=== PATIENT | female | born 1965 | race Caucasian/White ===

== ENCOUNTER 2017-07-21 15:30 | Outpatient (CLI) | payer OTHER | END 2017-07-21 15:31 | disposition home or self-care (01) | LOC: BICRAD 15:30 | PROVIDERS: ATTEND Internal Medicine | DX: Z02.71 Encounter for disability determination (principal); M47.896 Other spondylosis, lumbar region; Z95.1 Presence of aortocoronary bypass graft | CPT/HCPCS: 72100 ==

== ENCOUNTER 2017-11-25 22:08 | Emergency (ER) | payer OTHER, SELFPAY ==
--- NOTE | 2017-11-25 23:00 | RAD ---
CHEST ONE VIEW: 11/25/17 HISTORY: Pain. COMPARISON: None. FINDINGS: Slight elongation of the aorta. Normal cardiac silhouette. The lungs and pleural spaces are clear. No pneumothorax or osseous abnormalities. IMPRESSION: No acute cardiopulmonary process. POS: [facility]
[2017-11-25 23:02] LABS: #Lymphocytes 1.9 thou/uL (1.20-3.40); #Monocytes 0.5 thou/uL (0.11-0.59); %Eosinophils 0.3 % (0.0-10.0); %Lymphocytes 18.2 % (21.0-51.0); %Monocytes 4.5 % (0.0-10.0); Hemoglobin 12.6 g/dL (12.0-16.0); Mean Corpuscular HGB CONC 33.6 g/dL (32.0-36.0); Mean Corpuscular Hemoglobin 27.9 pg (27.0-31.0); Mean Platelet Volume 6.8 fL (7.4-10.4); Platelet Count 321 thou/uL (130-400); RBC Distribution Width 12.2 % (11.5-14.5); White Blood Cell (WBC) Count 10.3 thou/uL (4.8-10.8)
[2017-11-25 23:04] LABS: Bilirubin Negative (Negative); Blood, Urine Moderate (Negative); Clarity CLEAR (Clear); Glucose, Urine (Dipstick) Negative (Negative); Leukocyte Large (Negative); Nitrite Negative (Negative); Protein, Urine (Dipstick) Negative (Neg-Trace); Specific Gravity, Urine 1.005 (1.002-1.036); Urobilinogen 0.2 mg/dL (0.2-1.0)
[2017-11-25 23:06] LABS: Bacteria/HPF None Seen HPF (None Seen); Hyaline Casts/LPF 0-3 HYALINE CAST LPF (0-3 Hyaline); Pathc Cast-AUWi Flag 0.14 (0-2.49); Squamous Epithelial 0-3 HPF (0-3); WBC/HPF 21-50 HPF (0-3)
[2017-11-25 23:14] LABS: Cocaine Metabolite Screen Not Detected (NotDetected); Medtox Reader # READER 1; Methamphetamine Detected (NotDetected); Phencyclidine (PCP) Not Detected (NotDetected); THC/Cannabinoid Screen Not Detected (NotDetected)
[2017-11-25 23:15] LABS: Amphetamine Detected (NotDetected); Barbiturates Screen Not Detected (NotDetected); Benzodiazepine Screen Detected (NotDetected); Medtox Control Line Valid? VALID (VALID); Methadone Not Detected (NotDetected); Opiate Screen Not Detected (NotDetected); Oxycodone Screen Not Detected (NotDetected); Tricyclic Screen Detected (NotDetected)
[2017-11-25 23:24] LABS: Acetaminophen Less than 6.0 mcg/mL (10.0-30.0); Alcohol Less than 10 mg/dL (Less than 10); CK (CPK) 68 U/L (29-168); Salicylate Less than 8.0 mg/dL (15.0-30.0)
[2017-11-25] MEDS ORDERED: Ketorolac Tromethamine 30 MG/ML VIAL ONE (23:24)
[2017-11-25 23:25] LABS: ALT (SGPT) 11 U/L (8-55); AST (SGOT) 15 U/L (5-34); Albumin 4.5 g/dL (3.5-5.0); Alkaline Phosphatase 109 U/L (40-150); Anion Gap 14 mmol/L (10-20); BUN (Urea Nitrogen) 10 mg/dL (9.8-20.1); Bilirubin, Total 0.2 mg/dL (0.2-1.2); Calc. Creatinine Clearance 0 mL/min (70-130); Carbon Dioxide 27 mmol/L (22-29); Chloride 102 mmol/L (98-107); Estimated GFR-MDRD Greater than 90; Glucose 88 mg/dL (70-105); Potassium 3.7 mmol/L (3.5-5.1); Protein, Total 7.5 g/dL (6.0-8.3); Sodium 139 mmol/L (136-145)
[2017-11-25 23:29] LABS: Troponin I Less than 0.010 ng/mL (< 0.028)
[2017-11-25] MEDS ORDERED: cefTRIAXone\\ROCEPHIN 2 GM VIAL ONE (23:55)
[2017-11-25] MEDS ORDERED: Sodium Chloride 0.9% 100 ML ONE (23:56)
--- NOTE | 2017-12-13 16:24 | EKG ---
Test Reason : TACHY/DRUG USE Blood Pressure : / mmHG Vent. Rate : 113 BPM Atrial Rate : 113 BPM P-R Int : 158 ms QRS Dur : 074 ms QT Int : 330 ms P-R-T Axes : 050 011 023 degrees QTc Int : 452 ms Sinus tachycardia Otherwise normal ECG Confirmed by AYDIN ROBLES M.D. ([id number]), tape editor KEON FERGUSON ([id number]) on 12/13/2017 4:22:57 PM Referred By: Confirmed By:AYDIN ROBLES M.D.
--- NOTE | 2017-12-13 16:24 | EKG ---
Test Reason : CHEST PAIN Blood Pressure : / mmHG Vent. Rate : 102 BPM Atrial Rate : 102 BPM P-R Int : 172 ms QRS Dur : 076 ms QT Int : 354 ms P-R-T Axes : 049 017 032 degrees QTc Int : 461 ms Sinus tachycardia Otherwise normal ECG Confirmed by MARGARET Monahan, AYDIN ([id number]), editor farm [employer] KEON FERGUSON ([id number]) on 12/13/2017 4:22:59 PM Referred By: CHRISTIANE ROBLES Confirmed By:AYDIN ROBLES M.D.
== END 2017-11-26 00:25 | disposition home or self-care (01) ==
LOC: ERS 22:08
DX: N39.0 Urinary tract infection, site not specified (principal); F15.10 Other stimulant abuse, uncomplicated; F13.20 Sedative, hypnotic or anxiolytic dependence, uncomplicated; F19.10 Other psychoactive substance abuse, uncomplicated; I10 Essential (primary) hypertension; F41.9 Anxiety disorder, unspecified; F17.210 Nicotine dependence, cigarettes, uncomplicated
CPT/HCPCS: 71045; 80053; 80306; 80307; 81003; 81015; 82553; 84484; 85025; 87086; 93005; 96361; 96365; 96375; J0696; J1885; J7050

== ENCOUNTER 2019-07-03 20:39 | Emergency (ER) | payer SELFPAY ==
[~2019-07-03 20:39] MED LIST: Iopamidol-370 76% 500 ML 1 ML ONE
[2019-07-03 21:30] LABS: #Basophils 0.1 thou/uL (0.0-0.2); #Eosinphils 0.1 thou/uL (0.0-0.7); #Lymphocytes 2.1 thou/uL (1.20-3.40); #Monocytes 1.6 thou/uL (0.11-0.59); %Basophils 0.3 % (0.0-1.0); %Eosinophils 0.5 % (0.0-10.0); %Lymphocytes 11.2 % (21.0-51.0); %Monocytes 8.6 % (0.0-10.0); %Neutrophils 79.5 % (42.0-75.0); Hemoglobin 12.8 g/dL (12.0-16.0); Mean Corpuscular HGB CONC 33.1 g/dL (32.0-36.0); Mean Corpuscular Hemoglobin 28.1 pg (27.0-31.0); Mean Platelet Volume 7.1 fL (7.4-10.4); Platelet Count 395 thou/uL (130-400); RBC Distribution Width 12.5 % (11.5-14.5); Red Blood Cell (RBC) Count 4.54 mill/uL (4.20-5.40); White Blood Cell (WBC) Count 18.9 thou/uL (4.8-10.8)
[2019-07-03 21:39] LABS: BHCG - Serum Negative (NEGATIVE); Pregs Control Background? CLEAR/WHITE (CLR/WHITE); Pregs Control Bar Appear? YES (CONTROL BAR)
[2019-07-03] MEDS ORDERED: Morphine 4 MG/ML VIAL ONE (21:43)
[2019-07-03] MEDS ORDERED: Ondansetron PF 4 MG/2 ML Vial ONE (21:43)
[2019-07-03 21:56] LABS: ALT (SGPT) 9 U/L (8-55); AST (SGOT) 14 U/L (5-34); Albumin 4.6 g/dL (3.5-5.0); Alkaline Phosphatase 127 U/L (40-110); Anion Gap 16 mmol/L (10-20); BUN (Urea Nitrogen) 31 mg/dL (9.8-20.1); Bilirubin, Total 0.3 mg/dL (0.2-1.2); Calc. Creatinine Clearance 0 mL/min (70-130); Calcium 9.8 mg/dL (7.8-10.44); Carbon Dioxide 23 mmol/L (22-29); Chloride 102 mmol/L (98-107); Estimated GFR-MDRD 38; Glucose 127 mg/dL (70-105); Lipase 34 U/L (8-78); Potassium 3.8 mmol/L (3.5-5.1); Protein, Total 7.6 g/dL (6.0-8.3); Sodium 137 mmol/L (136-145)
[2019-07-03 22:20] LABS: Bilirubin 1+ (Negative); Blood, Urine 1+ (Negative); Clarity Turbid (Clear); Glucose, Urine (Dipstick) Normal (Negative); Leukocyte Negative Leu/uL (Negative); Mucous/LPF 1+ LPF (<2+); Nitrite Negative (Negative); Protein, Urine (Dipstick) 50 mg/dL (Neg-Trace); Squamous Epithelial 0-3 HPF (0-3); Urobilinogen 3 mg/dL (Less than 2)
[2019-07-03 22:27] LABS: Bacteria/HPF 3+ HPF (None Seen)
--- NOTE | 2019-07-03 22:35 | CT ---
CT OF THE ABDOMEN AND PELVIS WITH IV CONTRAST INDICATION: Abdominal Pain COMPARISON: None FINDINGS: ABDOMEN: Lung bases: There is bibasilar atelectasis Liver: No focal lesion. Gallbladder: Normal appearing. Pancreas: Normal. Adrenal glands: Normal. Spleen: Normal. Kidneys and ureters: There is postsurgical change of a superior pole the left kidney. No focal renal lesion is evident. No hydronephrosis is demonstrated. Vasculature: Normal. Lymph nodes:Few shotty appearing lymph nodes are seen within the upper abdomen and retroperitoneum. N o pathologically enlarged lymph nodes are evident. Free fluid in abdomen:No free fluid is evident. PELVIS: Small and large bowel: There is postsurgical change of the distal small bowel and cecal colectomy wit h an ileal colonic anastomosis seen within the right lower quadrant. There is a moderate amount retained stool within the colon. Appendix:Presumed to be surgically absent. Bladder: Decompressed Rectal and perirectal soft tissues:Normal. Reproductive structures: Normal. Free fluid in pelvis: No free fluid is evident. Lymphadenopathy pelvis: No lymphadenopathy is evident. Osseous structures: No acute osseous abnormality. No destructive osteolytic or osteoblastic lesion i s identified. There is scattered degenerative and osteoarthritic changes. There is postsurgical change of a posterior lateral interbody fusion of L4-S1. There are laminectomies at L4 and L5. Soft tissues:Normal. IMPRESSION: 1. No acute abnormality. 2. Moderate amount of retained stool within the colon.
== END 2019-07-03 23:45 | disposition home or self-care (01) ==
LOC: ERS 20:39
DX: N39.0 Urinary tract infection, site not specified (principal); I10 Essential (primary) hypertension; F41.9 Anxiety disorder, unspecified; F17.210 Nicotine dependence, cigarettes, uncomplicated; Z79.899 Other long term (current) drug therapy
CPT/HCPCS: 74177; 80053; 81003; 81015; 83690; 84703; 85025; 96361; 96374; 96375; J2270; J2405; Q9967

== ENCOUNTER 2019-08-14 15:18 | Emergency (ER) | payer SELFPAY ==
[2019-08-14 16:19] LABS: #Monocytes 0.4 thou/uL (0.11-0.59); #Neutrophils 3.1 thou/uL (1.40-6.50); %Basophils 0.5 % (0.0-1.0); %Eosinophils 0.4 % (0.0-10.0); %Lymphocytes 35.3 % (21.0-51.0); %Monocytes 7.7 % (0.0-10.0); %Neutrophils 56.1 % (42.0-75.0); Hemoglobin 11.2 g/dL (12.0-16.0); Mean Corpuscular HGB CONC 32.9 g/dL (32.0-36.0); Mean Corpuscular Volume 88.1 fL (78.0-98.0); Mean Platelet Volume 6.8 fL (7.4-10.4); Platelet Count 375 thou/uL (130-400); Red Blood Cell (RBC) Count 3.86 mill/uL (4.20-5.40); White Blood Cell (WBC) Count 5.5 thou/uL (4.8-10.8)
[2019-08-14] MEDS ORDERED: Lorazepam 1 MG TAB ONE (16:41)
[2019-08-14 16:42] LABS: ALT (SGPT) 9 U/L (8-55); AST (SGOT) 14 U/L (5-34); Albumin 4.7 g/dL (3.5-5.0); Alkaline Phosphatase 83 U/L (40-110); Anion Gap 11 mmol/L (10-20); BUN (Urea Nitrogen) 12 mg/dL (9.8-20.1); Bilirubin, Total 0.2 mg/dL (0.2-1.2); Calc. Creatinine Clearance 0 mL/min (70-130); Calcium 10.2 mg/dL (7.8-10.44); Carbon Dioxide 29 mmol/L (22-29); Chloride 105 mmol/L (98-107); Estimated GFR-MDRD 82; Globulin 2.9 g/dL (2.4-3.5); Glucose 79 mg/dL (70-105); Lipase 34 U/L (8-78); Magnesium 1.8 mg/dL (1.6-2.6); Potassium 3.7 mmol/L (3.5-5.1); Protein, Total 7.6 g/dL (6.0-8.3); Sodium 141 mmol/L (136-145)
--- NOTE | 2019-08-14 16:52 | RAD ---
EXAM: Chest one view: HISTORY: Chest pain COMPARISON: 11/25/2017 FINDINGS: Heart size: Within normal limits. Lungs: Clear of acute process. No evidence for confluent pneumonia, pleural effusion, acute edema, or pneumothorax, or other signifi cant acute process. IMPRESSION: No significant acute intrathoracic disease. Atherosclerotic ectasia of the aorta
[2019-08-14 17:15] LABS: Free T4 (Free Thyroxine) 1.03 ng/dL (0.70-1.48); Thyroid Stimulating Hormone 0.0084 uIU/mL (0.35-4.94)
== END 2019-08-14 17:27 | disposition home or self-care (01) ==
LOC: ERS 15:18
DX: F41.9 Anxiety disorder, unspecified (principal); F43.0 Acute stress reaction; I10 Essential (primary) hypertension; F31.9 Bipolar disorder, unspecified; R07.89 Other chest pain; F17.210 Nicotine dependence, cigarettes, uncomplicated; Z79.899 Other long term (current) drug therapy
CPT/HCPCS: 36415; 71045; 80053; 83690; 83735; 84439; 84443; 84484; 85025; 85379; 93005

== ENCOUNTER 2020-02-27 18:09 | Emergency (ER) | payer SELFPAY ==
[2020-02-27] MEDS ORDERED: Diazepam 5 MG TAB ONE (18:51)
== END 2020-02-27 19:08 | disposition home or self-care (01) ==
LOC: ERS 18:09
DX: F41.9 Anxiety disorder, unspecified (principal); I10 Essential (primary) hypertension; F31.9 Bipolar disorder, unspecified; F17.210 Nicotine dependence, cigarettes, uncomplicated; Z79.899 Other long term (current) drug therapy
CPT/HCPCS: 99283

== ENCOUNTER 2021-01-25 11:50 | Emergency (ER) | payer SELFPAY ==
[2021-01-25] MEDS ORDERED: Lidocaine 1% PF 5 ML VIAL ONE (11:58)
[2021-01-25] MEDS ORDERED: Bacitracin 1 PK ONE (13:01)
== END 2021-01-25 13:04 | disposition home or self-care (01) ==
LOC: ERS 11:50
DX: S61.212A Laceration without foreign body of right middle finger without damage to nail, initial encounter (principal); W23.0XXA Caught, crushed, jammed, or pinched between moving objects, initial encounter
CPT/HCPCS: 64450

== ENCOUNTER 2021-08-20 00:59 | Emergency (ER) | payer SELFPAY | END 2021-08-20 01:46 | disposition home or self-care (01) | LOC: ERS 00:59 | DX: M54.2 Cervicalgia (principal); M25.551 Pain in right hip; M79.601 Pain in right arm; I10 Essential (primary) hypertension; F17.210 Nicotine dependence, cigarettes, uncomplicated | CPT/HCPCS: 99283 ==

== ENCOUNTER 2021-09-23 16:43 | Emergency (ER) | payer BC, SELFPAY ==
[2021-09-23] MEDS ORDERED: Proparacaine 0.5% Opth 15 ML BOT ONE (17:15)
== END 2021-09-23 18:55 | disposition home or self-care (01) ==
LOC: ERS 16:43
DX: Z77.098 Contact with and (suspected) exposure to other hazardous, chiefly nonmedicinal, chemicals (principal); I10 Essential (primary) hypertension; E03.9 Hypothyroidism, unspecified; F17.210 Nicotine dependence, cigarettes, uncomplicated; Z79.899 Other long term (current) drug therapy
CPT/HCPCS: 99283

== ENCOUNTER 2022-01-07 09:44 | Outpatient (CLI) | payer SELFPAY | END 2022-01-07 09:45 | disposition home or self-care (01) | LOC: RAD 09:44 | PROVIDERS: ATTEND Internal Medicine | DX: Z02.71 Encounter for disability determination (principal); M51.36 Other intervertebral disc degeneration, lumbar region; Z98.890 Other specified postprocedural states | CPT/HCPCS: 72100 ==

== ENCOUNTER 2022-01-13 10:25 | Emergency (ER) | payer SELFPAY ==
[2022-01-13 11:53] LABS: Hemoglobin 9.1 g/dL (12.0-16.0); Mean Corpuscular HGB CONC 32.4 g/dL (32.0-36.0); Mean Corpuscular Hemoglobin 29.4 pg (27.0-31.0); Mean Corpuscular Volume 90.8 fL (78.0-98.0); Mean Platelet Volume 6.8 fL (7.4-10.4); Platelet Count 263 thou/uL (130-400); White Blood Cell (WBC) Count 11.7 thou/uL (4.8-10.8)
[2022-01-13 12:02] LABS: ALT (SGPT) 15 U/L (8-55); AST (SGOT) 21 U/L (5-34); Albumin 3.2 g/dL (3.5-5.0); Alkaline Phosphatase 185 U/L (40-110); Anion Gap 14 mmol/L (10-20); BUN (Urea Nitrogen) 10 mg/dL (9.8-20.1); Bilirubin, Total 0.5 mg/dL (0.2-1.2); Calc. Creatinine Clearance 0 mL/min (70-130); Calcium 8.5 mg/dL (7.8-10.44); Carbon Dioxide 26 mmol/L (22-29); Chloride 99 mmol/L (98-107); Estimated GFR 102; Globulin 3.2 g/dL (2.4-3.5); Glucose 90 mg/dL (70-105); Protein, Total 6.4 g/dL (6.0-8.3); Sodium 136 mmol/L (136-145)
[2022-01-13 12:11] LABS: Potassium 2.6 mmol/L (3.5-5.1)
[2022-01-13 12:13] LABS: Band 4 % (5-11); Lymphocytes 6 % (21-51); MDiff Complete? YES; Monocytes 7 % (0-10); Neutrophil 83 % (42-75); Platelet Morphology Comment Appears Adequate; RBC Morphology Normal
[2022-01-13] MEDS ORDERED: Potassium Chloride 20 MEQ TAB ONE (12:42)
== END 2022-01-13 13:14 | disposition home or self-care (01) ==
LOC: ERS 10:25
DX: E87.6 Hypokalemia (principal); I10 Essential (primary) hypertension; E03.9 Hypothyroidism, unspecified; F17.210 Nicotine dependence, cigarettes, uncomplicated; Z79.899 Other long term (current) drug therapy
CPT/HCPCS: 80053; 85025; 93005; 96360

== ENCOUNTER 2022-01-21 14:52 | Emergency (ER) | payer SELFPAY | END 2022-01-21 16:40 | disposition left against medical advice (07) | LOC: ERS 14:52 | DX: Z53.21 Procedure and treatment not carried out due to patient leaving prior to being seen by health care provider (principal) ==

== ENCOUNTER 2023-03-03 18:11 | Emergency (ER) | payer SELFPAY | END 2023-03-03 18:52 | disposition left against medical advice (07) | LOC: ERS 18:11 | DX: Z53.21 Procedure and treatment not carried out due to patient leaving prior to being seen by health care provider (principal) ==

== ENCOUNTER 2023-05-05 14:45 | Emergency (ER) | payer BC, OTHER, SELFPAY ==
[2023-05-05] MEDS ORDERED: LORazepam 2 MG/ML SYR.(CARPUJECT) ONE (15:21)
[2023-05-05 15:28] LABS: #Eosinphils 0.1 thou/uL (0.0-0.7); #Monocytes 0.4 thou/uL (0.11-0.59); #Neutrophils 4.1 thou/uL (1.40-6.50); %Basophils 0.2 % (0.0-1.0); %Eosinophils 0.8 % (0.0-10.0); %Lymphocytes 32.3 % (21.0-51.0); %Monocytes 5.6 % (0.0-10.0); %Neutrophils 60.9 % (42.0-75.0); Hematocrit 44.6 % (36.0-47.0); Hemoglobin 14.9 g/dL (12.0-16.0); Mean Corpuscular HGB CONC 33.4 g/dL (32.0-36.0); Mean Corpuscular Hemoglobin 29.4 pg (27.0-31.0); Platelet Count 331 10x3/uL (130-400); RBC Distribution Width 12.1 % (11.5-14.5); Red Blood Cell (RBC) Count 5.07 mill/uL (4.20-5.40); White Blood Cell (WBC) Count 6.7 10x3/uL (4.8-10.8)
[2023-05-05 15:57] LABS: ALT (SGPT) 12 U/L (8-55); AST (SGOT) 14 U/L (5-34); Albumin 5.4 g/dL (3.5-5.0); Alkaline Phosphatase 101 U/L (40-110); Anion Gap 17 mmol/L (10-20); BUN (Urea Nitrogen) 10 mg/dL (9.8-20.1); Bilirubin, Total 0.4 mg/dL (0.2-1.2); Calc. Creatinine Clearance 0 mL/min (70-130); Calcium 10.6 mg/dL (7.8-10.44); Carbon Dioxide 26 mmol/L (22-29); Chloride 99 mmol/L (98-107); Estimated GFR 85; Globulin 3.2 g/dL (2.4-3.5); Glucose 98 mg/dL (70-105); Potassium 4.2 mmol/L (3.5-5.1); Protein, Total 8.6 g/dL (6.0-8.3); Sodium 138 mmol/L (136-145)
[2023-05-05 15:58] LABS: Troponin I Less than 0.010 ng/mL (< 0.028)
[2023-05-05 16:04] LABS: Bacteria/HPF None Seen HPF (None Seen); Bilirubin Negative (Negative); Blood, Urine 2+ (Negative); CAUTI Indications for Culture Dysuria,urgency,freq; Clarity Clear (Clear); Glucose, Urine (Dipstick) Normal (Negative); Ketone, Urine Negative (Negative); Leukocyte Negative Leu/uL (Negative); Nitrite Negative (Negative); Protein, Urine (Dipstick) Negative (Neg-Trace); Specific Gravity, Urine 1.021 (1.002-1.036); Squamous Epithelial 0-3 HPF (0-3); Urobilinogen Normal mg/dL (Less than 2); WBC/HPF 0-3 HPF (0-3); pH, Urine 6.5 (5.0-9.0)
[2023-05-05 16:06] LABS: Amphetamine Detected (NotDetected); Barbiturates Screen Not Detected (NotDetected); Benzodiazepine Screen Not Detected (NotDetected); Cocaine Metabolite Screen Not Detected (NotDetected); Methadone Not Detected (NotDetected); Methamphetamine Detected (NotDetected); Opiate Screen Not Detected (NotDetected); Oxycodone Screen Not Detected (NotDetected); Phencyclidine (PCP) Not Detected (NotDetected); THC/Cannabinoid Screen Not Detected (NotDetected); Tricyclic Screen Not Detected (NotDetected)
[2023-05-05 16:07] LABS: Urine Culture Reflex No No
== END 2023-05-05 17:35 | disposition home or self-care (01) ==
LOC: ERS 14:45
DX: F41.1 Generalized anxiety disorder (principal); F15.20 Other stimulant dependence, uncomplicated; F17.210 Nicotine dependence, cigarettes, uncomplicated
CPT/HCPCS: 71045; 80053; 80306; 81001; 84484; 85025; 93005; 94760; 96374; J2060

== ENCOUNTER 2023-08-08 02:52 | Emergency (ER) | payer OTHER ==
[2023-08-08] MEDS ORDERED: Ketorolac Tromethamine 30 MG (1 mL) VIAL ONE (04:33)
== END 2023-08-08 04:54 | disposition home or self-care (01) ==
LOC: ERS 02:52
DX: S92.534A Nondisplaced fracture of distal phalanx of right lesser toe(s), initial encounter for closed fracture (principal); F17.210 Nicotine dependence, cigarettes, uncomplicated; W20.8XXA Other cause of strike by thrown, projected or falling object, initial encounter
CPT/HCPCS: 96372; J1885

== ENCOUNTER 2024-12-22 22:05 | Emergency (ER) | payer OTHER ==
[2024-12-22] MEDS ORDERED: HYDROcodone/Acetaminophen 5/325 mg Tablet ONE (22:54)
[2024-12-23] MEDS ORDERED: HYDROcodone/Acetaminophen 5/325 mg Tablet ONE (00:21)
== END 2024-12-23 00:50 | disposition home or self-care (01) ==
LOC: ERS 22:05
DX: M25.531 Pain in right wrist (principal); I10 Essential (primary) hypertension; F17.210 Nicotine dependence, cigarettes, uncomplicated; W19.XXXA Unspecified fall, initial encounter; Y93.01 Activity, walking, marching and hiking
CPT/HCPCS: 99283

== ENCOUNTER 2025-02-09 14:52 | Outpatient (CLI) | payer OTHER | END 2025-02-09 14:53 | disposition home or self-care (01) | LOC: SCSRAD 14:52 | PROVIDERS: ATTEND Family Medicine | DX: M25.572 Pain in left ankle and joints of left foot (principal); S92.002D Unspecified fracture of left calcaneus, subsequent encounter for fracture with routine healing; E05.90 Thyrotoxicosis, unspecified without thyrotoxic crisis or storm | CPT/HCPCS: 36415; 84439; 84443; 84481 ==